=== PATIENT | female | born 2005 | race Caucasian/White ===

== ENCOUNTER 2025-10-02 16:27 | Emergency (ER) | payer OTHER ==
[~2025-10-02] VITALS: Ht 172.7 cm; Wt 83.3 kg
[2025-10-02 18:53] LABS: BASO # 0.1 10^3/uL (0.0-0.2); BASO % 0.7 % (0.0-1.0); EOS # 0.1 10^3/uL (0.0-0.5); EOS % 0.8 % (0.0-3.0); LYMPH # 3.2 10^3/uL (1.5-5.0); LYMPH % 35.1 % (24.0-44.0); MONO # 0.5 10^3/uL (0.0-0.8); MONO % 5.9 % (2.0-8.0); NEUTROPHILS # 5.3 10^3/uL (1.5-8.5); NEUTROPHILS % 57.3 % (36.0-66.0); PLATELET COUNT, AUTOMATED 275 10^3/uL (150-450)
[2025-10-02] MEDS ORDERED: ISOVUE-370 76% 100 ML VIAL As Ordered ONE (19:04)
[2025-10-02] MEDS: ACETAMINOPHEN 500 MG TAB PO ONE (19:14)
[2025-10-02] MEDS: KETOROLAC 30 MG/ML 1 ML VIAL IV ONE (19:15)
[2025-10-02 19:23] LABS: HCG, SERUM QUALITATIVE NEGATIVE (NEGATIVE)
[2025-10-02 19:24] LABS: ALT/SGPT 18 U/L (7.0-40); AST/SGOT 16 U/L (<34); CALCIUM LEVEL 10.2 MG/DL (8.5-10.1); CARBON DIOXIDE LEVEL 27 MMOL/L (20-31); CHLORIDE LEVEL 107 MMOL/L (98-107); CREATININE FOR GFR 0.78 MG/DL (0.55-1.30); GLOMERULAR FILTRATION RATE > 90.0 (>60); POTASSIUM SERUM 4.3 MMOL/L (3.5-5.1); SODIUM LEVEL 142 MMOL/L (136-145)
[2025-10-02 22:10] VITALS: BP 119/77; TEMP 98.4; O2SAT 97
== END 2025-10-02 22:10 | disposition home or self-care (01) ==
LOC: M ED 16:27
DX: S39.011A Strain of muscle, fascia and tendon of abdomen, initial encounter (principal); R10.9 Unspecified abdominal pain; X58.XXXA Exposure to other specified factors, initial encounter; K76.0 Fatty (change of) liver, not elsewhere classified; F17.290 Nicotine dependence, other tobacco product, uncomplicated; Z91.013 Allergy to seafood; Y92.9 Unspecified place or not applicable; Y93.89 Activity, other specified; Y99.9 Unspecified external cause status
CPT/HCPCS: 71111; 74177; 80047; 80048; 80076; 83690; 84703; 85025; 96374; 99284; J1885; Q9967